=== PATIENT | male | born 1970 | race Two or more races ===

== ENCOUNTER 2022-12-31 08:55 | Day surgery (SDC) | payer MEDICARE, MEDICAID, SELFPAY ==
[2022-12-26 10:44] VITALS: BMI 32.4
[2022-12-26 11:53] VITALS: BMI 32.4
[2022-12-31 10:40] LABS: Glucose, Whole Blood 115 mg/dL (60-115)
[2022-12-31 10:47] VITALS: BP 105/70; PULSE 85; RESP 20; TEMP 36.3; O2SAT 98
--- NOTE | 2022-12-31 11:26 | P.CONAN_ITS ---
[facility] Past Medical History Medical History Abdominal pain Depression Diabetes Hyperlipidemia Meningitis Obese Pericarditis Schizophrenia Surgical History Surgical History History of appendectomy History of cardiac catheterization History of Problems with Anesthesia: No Social History Social History Patient Tobacco Use Status: Current everyday Tobacco user Tobacco use type: Cigarette Use of substances other than those prescribed or required for medical reasons: No Advance Directives: No Advance Directives Information Provided: Yes Nutrition Risks: No Nutritional Risk Meds Allergies Allergy/AdvReac Type Severity Reaction Status Date / Time diazepam [From Valium] Allergy Involuntary Verified 12/31/22 10:50 Spasms Home Medications Medication Instructions Recorded Confirmed Last Taken Type atorvastatin 40 mg tablet 40 mg PO BEDTIME 12/26/22 12/26/22 Unknown History cetirizine 10 mg tablet 10 mg PO DAILY 12/26/22 12/26/22 Unknown History dulaglutide 1.5 mg/0.5 mL 1.5 mg subcut QWEEK 12/26/22 12/31/22 12/28/22 History subcutaneous pen injector (Trulicity) empagliflozin 25 mg tablet 25 mg PO DAILY 12/26/22 12/26/22 Unknown History (Jardiance) hydroxyzine pamoate 50 mg capsule 50 mg PO DAILY 12/26/22 12/26/22 Unknown History insulin glargine 100 unit/mL (3 38 unit subcut BEDTIME 12/26/22 12/31/22 12/30/22 20:00 History mL) subcutaneous pen (Basaglar 19 units KwikPen U-100 Insulin) melatonin 5 mg tablet 5 mg PO BEDTIME PRN Insomnia 12/26/22 12/26/22 Unknown History olanzapine 20 mg tablet 20 mg PO BEDTIME 12/26/22 12/26/22 Unknown History omeprazole 40 mg capsule,delayed 40 mg PO DAILY 12/26/22 12/26/22 Unknown History release sertraline 50 mg tablet 50 mg PO BEDTIME 12/26/22 12/26/22 Unknown History tramadol 50 mg tablet 50 mg PO DAILY PRN Pain 12/26/22 12/26/22 Unknown History trazodone 100 mg tablet 50 mg PO BEDTIME 12/26/22 12/26/22 Unknown History Exam Exam Date and Time: December 31, 2022 1126 Height,Weight and Vital Signs: Height 5 ft 6.93 in Weight 93.6 kg Last Vital Signs Temp 97.3 F 12/31/22 10:47 Pulse 85 12/31/22 10:47 Resp 20 12/31/22 10:47 BP 105/70 12/31/22 10:47 Pulse Ox 98 12/31/22 10:47 O2 Del Method Room Air 12/31/22 10:47 Pertinent Lab Results Pertinent Lab Results: Laboratory Tests 12/31/22 10:37 POC Glucose 115 Airway Mallampati Class: II (edentulous) TM Dist: >3cm Neck ROM: Full Loose/Missing/Broken Teeth: Yes, Upper and Lower Heart: RRR Lungs: CTA Assessment and Plan Assessment Anesthesia Assessment: Anesthesia Plan Discussed and Chart Reviewed Final Anesthetic Review History of Problems with Anesthesia: No NPO: Yes ASA Class: II Final Preanesthetic Review: Meds/Allgs Chart Reviewed, Consent Obtained/Reviewed and Anes Risks/Benef Reviewed Patient Risk: Low Procedure Risk: Low Anesthetic Plan Anesthetic Plan: GA Disposition: Standard PACU
[2022-12-31 12:47] VITALS: BP 147/91; PULSE 98; RESP 16; TEMP 36.1; O2SAT 98
[2022-12-31 12:52] VITALS: BP 120/80; PULSE 92; RESP 16; O2SAT 99
[2022-12-31 12:57] VITALS: BP 110/69; PULSE 85; RESP 20; O2SAT 96
--- NOTE | 2022-12-31 12:58 | HO.OPHTHAL ---
Ophthalmology Operative Note Date of Service: 12/31/22 Narrative: Diagnosis Graves eye disease with right hypertropia. Procedures 1. Recession of left inferior rectus muscle 5 mm 2. Recession of right superior rectus muscle [address] Tapia anesthesia general complications none. The patient is brought to the operating room and placed under general anesthesia. The eyes were prepped and draped in the usual sterile ophthalmic fashion. Forced ductions revealed 4+ resistance to elevation of the left eye and 2+ resistance to depression of the right eye. Lid speculum was then placed in the left eye and incisions made at bare sclera around the inferior rectus muscle. The muscle was hooked and dissected free of its overlying fascial attachments. The insertion was carefully secured with a double-armed Vicryl suture and then disinserted from the globe. It was reattached to a position 5 mm behind the original insertion. Conjunctiva was closed with interrupted Vicryl sutures. Lid speculum was then placed in the right eye where an incision was then made around the superior rectus muscle. The muscle was hooked and carefully dissected free of its surrounding fascial attachments. The insertion was carefully secured with a double-armed Vicryl suture disinserted from the globe. It was reattached to a position 3 mm behind the original insertion. Conjunctiva was closed with interrupted Vicryl sutures. The patient was then awoken from general anesthesia and discharged to postop recovery in good condition.
[2022-12-31 13:02] VITALS: BP 110/74; PULSE 83; RESP 20; O2SAT 97
[2022-12-31 13:20] VITALS: BP 123/76; PULSE 78; RESP 16; TEMP 36.1; O2SAT 98
== END 2022-12-31 14:31 | disposition home or self-care (01) ==
PROVIDERS: Visit Provider Ophthalmology
PROC: (CPT 67314; principal; 2022-12-31 12:10)
DX: H05.20 Unspecified exophthalmos (principal); E78.5 Hyperlipidemia, unspecified; E11.9 Type 2 diabetes mellitus without complications; E66.8 Other obesity; Z68.32 Body mass index [BMI] 32.0-32.9, adult; F32.A Depression, unspecified; F20.9 Schizophrenia, unspecified; Z79.4 Long term (current) use of insulin; Z79.899 Other long term (current) drug therapy; Z88.8 Allergy status to other drugs, medicaments and biological substances; F17.210 Nicotine dependence, cigarettes, uncomplicated
CPT/HCPCS: 67314; 82947; J0131; J1100; J1885; J2250; J2405; J3010